=== PATIENT | female | born 1965 | race Caucasian/White ===

== ENCOUNTER 2023-08-27 09:29 | Outpatient (OUT) | payer OTHER, SELFPAY ==
--- NOTE | 2023-08-27 09:38 | MM_ITS ---
Patient Name: GABY FREDERICK MR#: [id number] : 1965 Exam Date: 08/27/2023 Ordering Doctor: Non-Staff Physician RADIOLOGY REPORT PROCEDURE: MM TOMOSYNTHESIS SCREENING BI COMPARISON: MG MAMM SCREEN 3D SISSY CAD, 06/19/2022. MG MAMM SCREEN 3D SISSY CAD, 06/13/2021. MG MAMM SCREEN SISSY W CAD, 05/12/2019. MG MAMM SCREEN SISSY W CAD, 11/11/2014. INDICATIONS: screening Calculator Name NCI Breast Cancer Risk Assessment Tool 5 Year Breast Cancer Risk 1.10% Lifetime Breast Cancer Risk 6.00% Personal Breast Cancer No Personal Ovarian Cancer No Treatments None Family Cancers Aunt-maternal with breast cancer at age 50; Aunt-paternal with breast cancer at age ~55; Mother with colon cancer at age 67. LOCATION: [facility] BREAST COMPOSITION: Extremely dense, which lowers the sensitivity of mammography. FINDINGS: DIAGNOSTIC CATEGORY 1--NEGATIVE. RIGHT BREAST: No significant suspicious finding. No significant change has occurred. LEFT BREAST: No significant suspicious finding. No significant change has occurred. RECOMMENDATIONS: ROUTINE MAMMOGRAM AND CLINICAL EVALUATION IN 12 MONTHS. PLEASE NOTE: A NORMAL MAMMOGRAM DOES NOT EXCLUDE THE POSSIBILITY OF BREAST CANCER. A CLINICALLY SUSPICIOUS PALPABLE LUMP SHOULD BE BIOPSIED. Dictated by: Branden Munoz M.D. on 08/29/2023 at 15:41 Approved by: Branden Munoz M.D. on 08/29/2023 at 15:42
== END 2023-08-27 09:30 | disposition home or self-care (01) ==
LOC: MAMMO 09:32
DX: Z12.31 Encounter for screening mammogram for malignant neoplasm of breast (principal); Z80.3 Family history of malignant neoplasm of breast; Z80.0 Family history of malignant neoplasm of digestive organs
CPT/HCPCS: 77063; 77067

== ENCOUNTER 2024-09-17 07:57 | Outpatient (OUT) | payer OTHER, SELFPAY ==
--- NOTE | 2024-09-17 07:58 | MM_ITS ---
Patient Name: GABY FREDERICK MR#: [id number] : 1965 Exam Date: 09/17/2024 Ordering Doctor: NON-STAFF PHYSICIAN RADIOLOGY REPORT PROCEDURE: MM TOMOSYNTHESIS SCREENING BI COMPARISON: MM TOMOSYNTHESIS SCREENING BI, 08/27/2023. MG MAMM SCREEN 3D SISSY CAD, 06/19/2022. MG MAMM SCREEN 3D SSISY CAD, 06/13/2021. MG MAMM SCREEN SISSY W CAD, 11/11/2014. INDICATIONS: Screening Calculator Name NCI Breast Cancer Risk Assessment Tool 5 Year Breast Cancer Risk 1.10% Lifetime Breast Cancer Risk 5.80% Personal Breast Cancer No Personal Ovarian Cancer No Treatments None Family Cancers Aunt-maternal with breast cancer at age 50; Aunt-paternal with breast cancer at age ~55; Mother with colon cancer at age 67. LOCATION: [facility] BREAST COMPOSITION: The breasts are heterogeneously dense,which may obscure small masses. FINDINGS: DIAGNOSTIC CATEGORY 1--NEGATIVE. LEFT BREAST: No significant suspicious finding. RIGHT BREAST: No significant suspicious finding. RECOMMENDATIONS: ROUTINE MAMMOGRAM AND CLINICAL EVALUATION IN 12 MONTHS. PLEASE NOTE: A NORMAL MAMMOGRAM DOES NOT EXCLUDE THE POSSIBILITY OF BREAST CANCER. A CLINICALLY SUSPICIOUS PALPABLE LUMP SHOULD BE BIOPSIED. Dictated by: Dayton Thurman DO on 09/18/2024 at 09:46 Approved by: Dayton Thurman DO on 09/18/2024 at 09:47
--- OUTSIDE RECORDS SUMMARY | 2024-09-17 08:00 | XMS_ITS | CCD ---
Author Organization [facility] Care Team Providers Care Payroll Associate Name Role Phone Yves Miramontes Unavailable Mast, Rip Unavailable JOANNE SORIA Primary Care Unavailable ELISEO CHEEK Attending Unavailable ELISEO CHEEK Admitting Unavailable WESTDR YVES V Consulting Unavailable ELISEO CHEEK Consulting Unavailable Mast, Rip Primary Care Unavailable Mast, Rip Attending Unavailable Mast, Rip Admitting Unavailable Mast, DO Rip Primary Care Provider Mast, DO Rip Attending Provider [phone] Allergies Allergy Classification Reported Allergen(s) Allergy Type Date of Onset Reaction(s) Facility (6 sources) Bee/Wasp/Ant venom Propensity to adverse reactions anaphylaxis [facility] Other (6 sources) [facility] Propensity to adverse reactions Unknown [facility] Other (1 source) ALLERGIES NOT ON FILE; Translations: [ALLERGIES NOT ON FILE] Propensity to adverse reactions (disorder) [facility] Repository Medications Current Medications Medication Drug Class(es) Dates Sig (Normalized) Sig (Original) Calcium Carbonate (6 sources) Tums Active lisinopril 10 mg oral tablet (1 source) Angiotensin Converting Enzyme Inhibitor Start: 08-26-2024 take 1 tablet by mouth once daily Lisinopril 10 mg tablet Active 10 MG PO Daily August 26, 2024 12:00am Multi For Her (6 sources) take 1 tablet by mouth once daily Multi For Her 1 Tablet Orally Daily Active 24 hr venlafaxine 75 mg extended release oral capsule (11 sources) Serotonin and Norepinephrine Reuptake Inhibitor Start: 08-21-2024 Venlafaxine 75 mg capsule,extended release 24hr Active 0 .ROUTE .COMPLEX 90 February 13th, 2025 8:27am TAKE 1 CAPSULE ONCE DAILY WITH FOOD Start: 06-09-2024 End: 08-21-2024 Venlafaxine 75 mg capsule,ex tended release 24hr Discontinued 0 .ROUTE .COMPLEX 90 June 09, 2024 9:04am August 21, 2024 8:27am TAKE 1 CAPSULE ONCE DAILY WITH FOOD Start: 08-29-2021 End: 06-09-2024 take 1 capsule by mouth once daily Venlafaxine 75 mg capsule,extended release 24hr Discontinued 75 MG PO Daily August 29, 2021 12:00am June 09, 2024 9:04am Completed/Discontinued Medications Medication Drug Class(es) Dates Sig (Normalized) Sig (Original) pantoprazole 40 mg delayed release oral tablet (9 sources) Proton Pump Inhibitor Start: 06-28-2021 End: 08-26-2024 take 1 tablet by mouth once daily Pantoprazole 40 mg tablet,delayed release (DR/EC) Discontinued 40 MG PO Daily August 29, 2021 12:00am August 26, 2024 1:29pm Triamcinolone (4 sources) Corticosteroid Start: 05-10-2015 KENALOG - 10 mg May, 60 mg Problems Active Problems Problem Classification Problem Date Documented Da te Episodic/Chronic Disorders of lipid metabolism (4 sources) Hyperlipidemia; Translations: [Hyperlipidemia, unspecified] Chronic Esophageal disorders (11 sources) Gastroesophageal reflux disease; Translations: [Gastro-esophageal reflux disease without esophagitis] Onset: 1 Resolved: 2 Chronic Immunizations and screening for infectious disease (4 sources) Encounter for screening for respiratory tuberculosis; Translations: [Encounter for immunization] Onset: 5 Episodic Mood disorders (6 sources) Major depression, single episode; Translations: [Major depressive disorder, single episode, unspecified] Chronic Other gastrointestinal disorders (9 sources) Celiac disease; Translations: [Celiac disease] 08-29-2021 Chronic Other gastrointestinal disorders (2 sources) Celiac disease Onset: 1 Resolved: 2 Chronic Other lower respiratory disease (1 source) Other forms of dyspnea Episodic Other screening for suspected conditions (not mental disorders or infectious disease) (6 sources) Encounter for screening for cardiovascular disorders; Translations: [Encounter for screening mammogram for malignant neoplasm of breast] Onset: 2 Resolved: 2 Episodic Residual codes; unclassified (6 sources) Insomnia; Translations: [Insomnia, unspecified] Episodic Residual codes; unclassified (3 sources) Family history of malignant neoplasm of digestive organs; Translations: [FAM HX MALIG NEOPLASM DIGESTIV ORGN] Onset: 1 Resolved: 2 Episodic Residual codes; unclassified (6 sources) Family history of cancer of colon; Translations: [Family history of malignant neoplasm of digestive organs] 08-29-2021 Episodic Residual codes; unclassified (1 source) Family history of malignant neoplasm of breast; Translations: [FAMILY HX MALIG NEOPLASM OF BREAST] Onset: 2 Episodic Unclassified (1 source) Encounter for screening for cardiovascular disorders; Translations: [Encounter for screening for cardiovascular disorders] Onset: 3 Past or Other Problems Problem Classification Problem Date Documented Da te Episodic/Chronic Residual codes; unclassified (3 sources) Family history of malignant neoplasm of gastrointestinal tract; Translations: [Family history of malignant neoplasm of digestive organs] Episodic Results Test Name Value Interpretation Reference Range Facility HEPATITIS B SURFACE ANTIBODY QUANTon 07-30-2024 HEPATITIS B VIRUS SURFACE AB (MIU/ML) IN SERUM 93.45 mIU/mL Normal [facility] Comment on above: Result Comment: INTE RPRETATION: NONREACTIVE <8.00 mIU/mL INDETERMINATE 8.00 - 12.00 mIU/mL REACTIVE >12 mIU/mL Performed By: #### L [id number] #### [facility] [address] [place] [address] Alanine aminotransferase [En zymatic activity/volume] in Serum or PlasmaOrdered By: Rip Mohr on 11-06-2022 ALT [Catalytic activity/Vol] 21 U/L 7-52 [facility] Albumin [Mass/volume] in Ser um or Plasma by Bromocresol green (BCG) dye binding methoOrdered By: Rip Mohr on 11-06-2022 Albumin BCG dye [Mass/Vol] 4.3 g/dL 3.5-5.7 [facility] Alkaline phosphatase [Enzyma tic activity/volume] in Serum or PlasmaOrdered By: Rip Mohr on 11-06-2022 ALP [Catalytic activity/Vol] 48 U/L 34-104 [facility] Aspartate aminotransferase [ Enzymatic activity/volume] in Serum or PlasmaOrdered By: Rip Mast on 11-06-2022 AST [Catalytic activity/Vol] 26 U/L 13-39 [facility] Bilirubin.total [Mass/volume ] in Serum or PlasmaOrdered By: Rip Mast on 11-06-2022 Bilirubin [Mass/Vol] 0.4 mg/dL 0.3-1.0 [facility] Calcium [Mass/volume] in Ser um or PlasmaOrdered By: Rip Mast on 11-06-2022 Calcium [Mass/Vol] 8.7 mg/dL 8.6-10.3 [facility] Carbon dioxide, total [Moles /volume] in Serum or PlasmaOrdered By: Rip Mast on 11-06-2022 CO2 [Moles/Vol] 26.8 mmol/L 21.0-31.0 [facility] Chloride [Moles/volume] in [place] or PlasmaOrdered By: Rip Mast on 11-06-2022 Chloride [Moles/Vol] 106 mmol/L 98-107 [facility] Cholesterol [Mass/volume] in Serum or PlasmaOrdered By: Rip Mast on 11-06-2022 Cholesterol [Mass/Vol] 246 mg/dL 140-200 [facility] Comment on above: Chol less than 200 m g/dl low riskChol 201-239 mg/dl borderline riskChol 240 mg/dl and greater high risk Cholesterol in LDL Calc [Mas s/Vol]Ordered By: Rip Mast on 11-06-2022 Cholesterol in LDL [Mass/Vol] 146 mg/dL 0-100 [facility] Comment on above: LDL ATP III CLASSIFI CATIONLDL less than 100 mg/dL OptimalLDL 100-129 mg/dL Near or above optimalLDL 130-159 mg/dL Borderline highLDL 160-189 mg/dL HighLDL greater than 189 mg/dL Very high Cholesterol in VLDL Calc [Ma ss/Vol]Ordered By: Rip Mast on 11-06-2022 Cholesterol in VLDL [Mass/Vol] 42 mg/dL [facility] Comprehensive Metabolic [place] 11-06-2022 Albumin [Mass/Vol] 4.3 g/dL Normal 3.5-5.7 [facility] Comment on above: Order Comment: PT FA STED 12 HOURS Reason for Exam Screening for cardiovascular condition Performed By: #### C MP, LIPID #### [facility] [address] Albumin/Globulin [Mass ratio] 1.5 {ratio} Normal [facility] Comment on above: Order Comment: PT FA STED 12 HOURS Reason for Exam Screening for cardiovascular condition Performed By: #### C MP, LIPID #### [facility] [address] ALP [Catalytic activity/Vol] 48 U/L Normal 34-104 [facility] Comment on above: Order Comment: PT FA STED 12 HOURS Reason for Exam Screening for cardiovascular condition Performed By: #### C MP, LIPID #### [facility] [address] [place] [address] ALT [Catalytic activity/Vol] 21 U/L Normal 7-52 [facility] Comment on above: Order Comment: PT FA STED 12 HOURS Reason for Exam Screening for cardiovascular condition Performed By: #### C MP, LIPID #### [facility] [address] Anion gap [Moles/Vol] 10.7 mmol/L Normal 6.0-15.0 [facility] Comment on above: Order Comment: PT FA STED 12 HOURS Reason for Exam Screening for cardiovascular condition Performed By: #### C MP, LIPID #### [facility] [address] [place] [address] [place] AST [Catalytic activity/Vol] 26 U/L Normal 13-39 [facility] Comment on above: Order Comment: PT FA STED 12 HOURS Reason for Exam Screening for cardiovascular condition Performed By: #### C MP, LIPID #### [facility] [address] [place] [address] [place] Bilirubin [Mass/Vol] 0.4 mg/dL Normal 0.3-1.0 [facility] Comment on above: Order Comment: PT FA STED 12 HOURS Reason for Exam Screening for cardiovascular condition Performed By: #### C MP, LIPID #### [facility] [address] Calcium [Mass/Vol] 8.7 mg/dL Normal 8.6-10.3 [facility] Comment on above: Order Comment: PT FA STED 12 HOURS Reason for Exam Screening for cardiovascular condition Performed By: #### C MP, LIPID #### [facility] [address] Chloride [Moles/Vol] 106 mmol/L Normal 98-107 [facility] Comment on above: Order Comment: PT FA STED 12 HOURS Reason for Exam Screening for cardiovascular condition Performed By: #### C MP, LIPID #### [facility] [address] CO2 [Moles/Vol] 26.8 mmol/L Normal 21.0-31.0 [facility] Comment on above: Order Comment: PT FA STED 12 HOURS Reason for Exam Screening for cardiovascular condition Performed By: #### C MP, LIPID #### [facility] [address] Creatinine [Mass/Vol] 0.87 mg/dL Normal 0.60-1.20 [facility] Comment on above: Order Comment: PT FA STED 12 HOURS Reason for Exam Screening for cardiovascular condition Performed By: #### C MP, LIPID #### [facility] [address] [place] [address] [place] GFR/1.73 sq M.predicted MDRD (S/P/Bld) [Vol rate/Area] mL/min/{1.73_m2} [facility] Comment on above: Order Comment: PT FA STED 12 HOURS Reason for Exam Screening for cardiovascular condition Performed By: #### C MP, LIPID #### [facility] [address] [place] [address] [place] Globulin (S) [Mass/Vol] 2.9 g/dL Normal [facility] Comment on above: Order Comment: PT FA STED 12 HOURS Reason for Exam Screening for cardiovascular condition Performed By: #### C MP, LIPID #### [facility] [address] [place] [address] [place] Glucose [Mass/Vol] 101 mg/dL High 70-100 [facility] Comment on above: Order Comment: PT FA STED 12 HOURS Reason for Exam Screening for cardiovascular condition Result Comment: [place] om Glucose Reference Range is dependent on time and content of last meal. Glucose of more than 200 mg/dL in a nonstressed, ambulatory subject supports the diagnosis of Diabetes Mellitus. ADA recommended reference range Performed By: #### C MP, LIPID #### [facility] [address] [place] [address] [place] Potassium [Moles/Vol] 4.5 mmol/L Normal 3.5-5.1 [facility] Comment on above: Order Comment: PT FA STED 12 HOURS Reason for Exam Screening for cardiovascular condition Performed By: #### C MP, LIPID #### [facility] [address] Protein [Mass/Vol] 7.2 g/dL Normal 6.4-8.9 [facility] Comment on above: Order Comment: PT FA STED 12 HOURS Reason for Exam Screening for cardiovascular condition Performed By: #### C MP, LIPID #### [facility] [address] [place] [id number] [place] Sodium [Moles/Vol] 139 mmol/L Normal 136-145 [facility] Comment on above: Order Comment: PT FA STED 12 HOURS Reason for Exam Screening for cardiovascular condition Performed By: #### C MP, LIPID #### [facility] [address] [place] [id number] [place] Urea nitrogen [Mass/Vol] 22 mg/dL Normal 7-25 [facility] Comment on above: Order Comment: PT FA STED 12 HOURS Reason for Exam Screening for cardiovascular condition Performed By: #### C MP, LIPID #### [facility] [address] [place] [id number] [place] Creatinine [Mass/volume] in Serum or PlasmaOrdered By: Rip Mohr on 11-06-2022 Creatinine [Mass/Vol] 0.87 mg/dL 0.60-1.20 [facility] Globulin Calc (S) [Mass/Vol] Ordered By: Rip Mohr on 11-06-2022 Globulin (S) [Mass/Vol] 2.9 g/dL [facility] Glucose [Mass/volume] in Ser um or PlasmaOrdered By: Rip Mohr on 11-06-2022 Glucose [Mass/Vol] 101 mg/dL 70-100 [facility] Comment on above: ADA recommended refe rence rangeRandom Glucose Reference Range is dependent on time and content of last meal. Glucose of more than 200 mg/dL in a nonstressed, ambulatory subject supports the diagnosis of Diabetes Mellitus. Lipid Panelon 11-06-2022 Cholesterol [Mass/Vol] 246 mg/dL High 140-200 [facility] Comment on above: Order Comment: PT FA STED 12 HOURS Reason for Exam Screening for cardiovascular condition Result Comment: Chol less than 200 mg/dl low risk Chol 201-239 mg/dl borderline risk Chol 240 mg/dl and greater high risk Performed By: #### C MP, LIPID #### [facility] [address] Cholesterol in HDL [Mass/Vol] 57 mg/dL Normal 35-85 [facility] Comment on above: Order Comment: PT FA STED 12 HOURS Reason for Exam Screening for cardiovascular condition Result Comment: HDL CHOL ATP-III CLASSIFICATION Cardiovascular Risk HDL > or equal to 60 mg/dL LOW HDL < 40 mg/dL HIGH Performed By: #### C MP, LIPID #### [facility] [address] Cholesterol.total/Choles terol in HDL [Mass ratio] 4.3 {ratio} Normal <5.0 [facility] Comment on above: Order Comment: PT FA STED 12 HOURS Reason for Exam Screening for cardiovascular condition Result Comment: PERF ORMED BY: [facility] [address] [place] [address] PATHOLOGIST MELTER CLERK TABATHA JERRY M.D. Performed By: #### C MP, LIPID #### [facility] [address] [place] [address] [place] LDL Cholesterol,Calculated 146 mg/dL High 0-100 [facility] Comment on above: Order Comment: PT FA STED 12 HOURS Reason for Exam Screening for cardiovascular condition Result Comment: LDL ATP III CLASSIFICATION LDL less than 100 mg/dL Optimal LDL 100-129 mg/dL Near or above optimal LDL 130-159 mg/dL Borderline high LDL 160-189 mg/dL High LDL greater than 189 mg/dL Very high Performed By: #### C MP, LIPID #### [facility] [address] Triglyceride w/Reflex 214 mg/dL High 0-149 [facility] Comment on above: Order Comment: PT FA STED 12 HOURS Reason for Exam Screening for cardiovascular condition Result Comment: TRIG ATP III CLASSIFICATION TRIG less than 150 mg/dL Normal TRIG 150-199 mg/dL Borderline high TRIG 200-500 mg/dL High TRIG greater than 500 mg/dL Very high Standard traceable to the Center for Disease Conrtrol and Prevention (CDC) test method. Performed By: #### C MP, LIPID #### [facility] [address] VLDL CHOLESTEROL 42 mg/dL Normal [facility] Comment on above: Order Comment: PT FA STED 12 HOURS Reason for Exam Screening for cardiovascular condition Performed By: #### C MP, LIPID #### [facility] [address] No Panel InformationOrdered By: Rip Mohr on 11-06-2022 Estimated GFR (CKD-EPI) > 60.0 mL/Min [facility] Creatinine Clearance (Chem N/A [facility] Potassium [Moles/volume] in Serum or PlasmaOrdered By: Rip Mohr on 11-06-2022 Potassium [Moles/Vol] 4.5 mmol/L 3.5-5.1 [facility] Protein [Mass/volume] in Ser um or PlasmaOrdered By: Rip Mohr on 11-06-2022 Protein [Mass/Vol] 7.2 g/dL 6.4-8.9 [facility] Serum or plasma albumin/glob ulin mass ratioOrdered By: Rip Mohr on 11-06-2022 Albumin/Globulin [Mass ratio] 1.5 {ratio} [facility] Serum or plasma anion gap de terminationOrdered By: Rip Mohr on 11-06-2022 Anion gap [Moles/Vol] 10.7 mmol/L 6.0-15.0 [facility] Serum or plasma high density lipoprotein (HDL) cholesterol measurementOrdered By: [facility] on 11-06-2022 Cholesterol in HDL [Mass/Vol] 57 mg/dL 35-85 [facility] Comment on above: HDL CHOL ATP-III CLA SSIFICATION Cardiovascular RiskHDL > or equal to 60 mg/dL LOWHDL < 40 mg/dL HIGH Serum or plasma total choles terol/high density lipoprotein (HDL) cholesterol mass ratOrdered By: [facility] on 11-06-2022 Cholesterol.total/Choles terol in HDL [Mass ratio] 4.3 {ratio} <5.0 [facility] Sodium [Moles/volume] in Ser um or PlasmaOrdered By: [facility] on 11-06-2022 Sodium [Moles/Vol] 139 mmol/L 136-145 [facility] Triglyceride [Mass/volume] i n Serum or PlasmaOrdered By: [facility] on 11-06-2022 Triglyceride [Mass/Vol] 214 mg/dL 0-149 [facility] Comment on above: TRIG ATP III CLASSIF ICATIONTRIG less than 150 mg/dL NormalTRIG 150-199 mg/dL Borderline highTRIG 200-500 mg/dL High TRIG greater than 500 mg/dL Very highStandard traceable to the Center for Disease Conrtrol and Prevention (CDC) test method. Urea nitrogen [Mass/volume] in Serum or PlasmaOrdered By: [facility] on 11-06-2022 Urea nitrogen [Mass/Vol] 22 mg/dL -25 [facility] MG MAMM SCREEN 3D SISSY CADon 06-19-2022 MG MAMM SCREEN 3D SISSY CAD Patient: KELELE PELAEZ Exam Date: 06/19/2022 : 1965 Gender:F Ordering : DR. ELISEO CHEEK D.O. Admission #: [id number] Family : Order #: [id number] CLICK HERE TO VIEW EXAM RADIOLOGY REPORT PROCEDURE: MAMMOGRAM SCREENING 3D BILATERAL CAD COMPARISON: MG MAMM SCREEN 3D SISSY CAD, 06/13/2021. MG MAMM SCREEN SISSY W CAD, 05/12/2019. INDICATIONS: Screening mammography Calculator Name NCI Breast Cancer Risk Assessment Tool 5 Year Breast Cancer Risk 1.10% Lifetime Breast Cancer Risk 6.10% Personal Breast Cancer No Personal Ovarian Cancer No Treatments None Family Cancers Aunt-maternal with breast cancer at age 50; Aunt-paternal with breast cancer at age 55; Mother with colon cancer at age 67. LOCATION: [facility] BREAST COMPOSITION: Extremely dense, which lowers the sensitivity of mammography. FINDINGS: DIAGNOSTIC CATEGORY 1--NEGATIVE. NO CHANGE FROM COMPARISON ASSESSMENT. Scattered benign-appearing lymph nodes are present. RIGHT BREAST: No significant suspicious finding. LEFT BREAST: No significant suspicious finding. RECOMMENDATIONS: ROUTINE MAMMOGRAM AND CLINICAL EVALUATION IN 12 MONTHS. PLEASE NOTE: A NORMAL MAMMOGRAM DOES NOT EXCLUDE THE POSSIBILITY OF BREAST CANCER. A CLINICALLY SUSPICIOUS PALPABLE LUMP SHOULD BE BIOPSIED. Dictated by: Yves Conley MD on 06/20/2022 at 10:54 Approved by: Yves Conley MD on 06/20/2022 at 10:55 Normal [facility] Hep Bs Abon 09-23-2019 HBV surface Ab Ql (S) Reactive Fis [facility] Comment on above: Result Comment: Non Reactive: Inconsistent with immunity, less than 10 mIU/mL Reactive: Consistent with immunity, greater than 9.9 mIU/mL Performed at: [facility] [address] [id number] PhD [place] Performed By: #### 2 [id number] #### [facility] [address] [place] [address] Varic IgGon 09-23-2019 VZV IgG IA Qn (S) 1969 Immune >165 [facility] Comment on above: Result Comment: Nega tive <135 Equivocal 135 - 165 Positive >165 A positive result generally indicates exposure to the pathogen or administration of specific immunoglobulins, but it is not indication of active infection or stage of disease. Performed at: [facility] [address] [id number] PhD [place] Performed By: #### [id number] #### [facility] [address] [place] [address] Vital Signs Date Time Vital Sign Value Performing Clinician Facility 08-26-2024 13:31-0500 Body height 162.56 cm [facility] 08-26-2024 13:31-0500 Body mass index (BMI) [Ratio] 25.9 kg/m2 [facility] 08-26-2024 13:31-0500 Body temperature 98.5 [degF] [facility] 08-26-2024 13:31-0500 Body weight 68.52 kg [facility] 08-26-2024 13:31-0500 Diastolic blood pressure 100 mm[Hg] [facility] 08-26-2024 13:31-0500 Heart rate 89 /min [facility] 08-26-2024 13:31-0500 SaO2% (BldA) [Mass fraction] 98 % [facility] 08-26-2024 13:31-0500 Systolic blood pressure 152 mm[Hg] [facility] 09-12-2022 13:00-0500 Body height 162.56 cm Rip Mast Other [email or web address] [facility] Other 09-12-2022 13:00-0500 Body mass index (BMI) [Ratio] 24.96 kg/m2 Rip Mast Other [facility] Other 09-12-2022 13:00-0500 Body temperature 98.5 [degF] Rip Mast Other [facility] Other 09-12-2022 13:00-0500 Body weight 65.95 kg Rip Mast Other [facility] Other 09-12-2022 13:00-0500 Diastolic blood pressure 78 mm[Hg] Rip Mast Other [facility] Other 09-12-2022 13:00-0500 Respiratory rate 16 /min Rip Mast Other [facility] Other 09-12-2022 13:00-0500 SaO2% (BldA) [Mass fraction] 96 % Rip Mast Other [facility] Other 09-12-2022 13:00-0500 Systolic blood pressure 112 mm[Hg] Rip Mast Other [facility] Other 06-28-2021 16:45-0500 Body height 162.56 cm Yves Miramontes Other [facility] Other 06-28-2021 16:45-0500 Body mass index (BMI) [Ratio] 24.89 kg/m2 Yves Miramontes Other [facility] Other 06-28-2021 16:45-0500 Body weight 65.77 kg Yves Miramontes Other [facility] Other Encounters Encounter Date Encounter Type Care Provider Facility Start: 08-26-2024 End: 08-26-2024 ambulatory [facility] Work Phone: Start: 08-26-2024 End: 08-26-2024 Patient encounter procedure [facility] Work Phone: Start: 07-30-2024 End: 07-30-2024 ambulatory [facility] Start: 07-30-2024 End: 07-30-2024 Encounter for antibody response examination [facility] Start: 08-09-2023 End: 08-09-2023 ambulatory Rip Mast Other [facility] Other Start: 08-09-2023 Telephone encounter Rip Mast [facility] Start: 11-06-2022 End: 11-06-2022 ambulatory Rip Mast Facility:[facility] Start: 11-06-2022 End: 11-06-2022 Patient encounter procedure DO Rip Mast Work Phone: [facility] Start: 09-12-2022 End: 09-12-2022 ambulatory Rip Mast Other [facility] Other Start: 09-12-2022 Encounter for genera l adult medical examination without abnormal findings Rip Mast [facility] Start: 09-12-2022 Periodic preventive med est patient 40-64yrs Rip Mast [facility] Start: 07-09-2022 End: 07-09-2022 ambulatory Rip Mast Other [facility] Other Start: 07-09-2022 Telephone encounter Rip Mast [facility] Start: 06-19-2022 End: 06-20-2022 ambulatory JOANNE SORIA Facility: Start: 09-26-2021 End: 09-26-2021 ambulatory Rip Mast Other [facility] Other Start: 09-26-2021 Telephone encounter Rip Mast [facility] Start: 08-05-2021 End: 08-05-2021 ambulatory Yves Miramontes Other [facility] Other Start: 08-05-2021 Telephone encounter Yves Miramontes [facility] Start: 06-28-2021 End: 06-28-2021 ambulatory Yves Miramontes Other [facility] Other Start: 06-28-2021 Office outpatient ne w 45 minutes Yves Miramontes [facility] Immunizations Immunization Date Immunization Notes Care Provider [place] 05-21-2022 influenza, seasonal, injectable Rip Mast Other [facility] 05-21-2022 COVID-19 Moderna (BIvalent) Rip Mast Other [facility] 06-18-2021 COVID-19 [id number] (Moderna) [facility] 05-09-2021 influenza, seasonal, injectable Rip Mast Other [facility] 12-27-2020 zoster vaccine recombinant Yves Miramontes Other [facility] 08-03-2020 COVID-19 [id number] (Moderna) [facility] 07-07-2020 COVID-19 Vaccine Mod marylou - Documentation Purposes Only Rip Mohr Other [facility] 07-06-2020 COVID-19 mRNA-[id number] (Moderna) [facility] 04-08-2020 influenza, seasonal, injectable Yves Miramontes Other [facility] Payers Date Payer Category Payer Self-pay [id number] 1965 Unknown [id number] 1960 Unknown [id number] Unknown MMO [id number] Unknown [id number] Social History Date Type Detail Facility Unknown if ever smoked [facility] Other Sex Assigned At Sex Assigned At Bir th [facility] Other Start: 1965 Sex Assigned At Female F [facility] Start: 08-29-2021 End: 08-26-2024 Tobacco smoking status NHIS Never smoked tobacco (finding) [facility] Start: 08-26-2024 Sex Female (finding) [facility] Evaluation note 09-12-2022 Note Date & Type Note Facility 09-12-2022 Evaluation note Encounter Date Diagnosis Assessment Notes Sep, Routine adult health maintenance (ICD-10 - Z00.00) Her exam is unremarkable. Routine screening labs are ordered, further treatment pending results. We discussed her exertional dyspnea, I am concerned for possible occult coronary disease. Check Cardiolite stress test, further treatment pending results Sep, Screening for cardiovascular condition (ICD-10 - Z13.6) Sep, Exertional dyspnea (ICD-10 - R06.09) [facility] Other Evaluation note 09-26-2021 Note Date & Type Note Facility 09-26-2021 Evaluation note Encounter Date Diagnosis Assessment Notes Sep, Screening for cardiovascular condition (ICD-10 - Z13.6) [facility] Other Evaluation note 08-05-2021 Note Date & Type Note Facility 08-05-2021 Evaluation note Encounter Date Diagnosis Assessment Notes Jul, GERD (gastroesoph ageal reflux disease) (ICD-10 - K21.9) Jul, Celiac disease (ICD-10 - K90.0) Jul, Family history of colon cancer (ICD-10 - Z80.0) [facility] Other Evaluation note Note Date & Type Note Facility Evaluation note [facility] Other Evaluation note Note Date & Type Note Facility Evaluation note No assessment information [facility] Work Phone: Evaluation note Note Date & Type Note Facility Evaluation note No Information [facility] Other History general Narrative - Reported Note Date & Type Note Facility History general Narrative - Reported [facility] Other History general Narrative - Reported Note Date & Type Note Facility History general Narrative - Reported Type Medical History Depression Medical History Eating disorder Medical History Generalized Anxiety Disorder Medical History Bulimia Nervosa Medical History Classic migraine Medical History Celiac Disease per Dr. Ferguson, 2 015 Medical History hearing loss Surgical History Hysterectomy: 1998 Surgical History 2008-colonoscopy, endoscopy Surgical History COLONOSCOPY, ENDOSCOPY- DR. LUIS FERNANDO KAYE Hospitalization History CHEST PAIN [facility] Other History general Narrative - Reported Note Date & Type Note Facility History general Narrative - Reported Type Medical History Depression Medical History Eating disorder Medical History Generalized Anxiety Disorder Medical History Bulimia Nervosa Medical History Classic migraine Medical History Celiac Disease per Dr. Ferguson, 2 015 Medical History hearing loss Surgical History Hysterectomy: 1998 Surgical History 2009-colonoscopy, endoscopy Surgical History COLONOSCOPY, ENDOSCOPY- DR. LUIS FERNANDO KAYE Surgical History Colonoscopy 2021 Hospitalization History CHEST PAIN [facility] Other Summary Purpose Family History Relationship Condition Age at Onset Recorded Date/T skylar Not Specified Malignant neoplasm of colon Unknown Diabetes mellitus Unknown Chronic obstructive pulmonary disease Unk nown Asthma Unknown father Myocardial infarction Unknown Relationship Condition Age at Onset Recorded Date/T skylar mother Malignant neoplasm of colon Unknown Diabetes mellitus Unknown Chronic obstructive pulmonary disease Unk nown Asthma Unknown father Myocardial infarction Unknown brother Unknown father Unknown Myocardial infarction Unknown Heart disease Unknown grandparent Unknown mother Malignant neoplasm Unknown Unknown Advance Directives Advance Directive Response Recorded Date/ Time Advance Directives No January 28 5:38pm Advance Directive Response Recorded Date/ Time Advance Directives No January 28 4:38pm Chief Complaint and Reason for Visit Chief Complaint Z13.6 Chief Complaint Admit Date Awv August 26, 2024 1:20pm Additional Source Comments INFORMATION SOURCE (unrecogn ized section and content) DATE CREATED [facility] DATE CREATED AUTHOR AUTHOR'S ORGANIZ ATION 06/30/2022 [facility] DATE CREATED AUTHOR AUTHOR'S ORGANIZ ATION 11/07/2022 [facility] DATE CREATED AUTHOR AUTHOR'S ORGANIZ ATION 08/01/2024 [facility] REASON FOR VISIT (unrecogniz ed section and content) COVID ORDERLab order request appt1 year Follow upRefill Goals (unrecognized section and content) Goals may be documented in a n alternate section Care Teams (unrecognized sec tion and content) Team Status: Active Member Role Status Dates Rip Mast , DO Primary Care Provider Active Team Status: Inactive Member Role Status Dates Rip Mast , DO Primary Care Provider Active Rip Mast , DO Attending Provider Active Team Status: Inactive Member Role Status Dates Rip Mast , DO Primary Care Provide r, Attending Provider Active Start: August 26, 2024 End: August 26, 2024 FOR RECORDS PERTAINING TO PATIENTS WHO ARE OR HAVE BEEN ENROLLED IN A CHEMICAL DEPENDENCY/SUBSTANCEABUSE PROGRAM, SOME INFORMATION MAY BE OMITTED. This clinical summary was aggregated from multiple sources. Caution should be exercised in using it in the provision of clinical care. This summary normalizes information from multiple sources, and as a consequence, information in this document may materially change the coding, format and clinical context of patient data. In addition, data may be omitted in some cases. CLINICAL DECISIONS SHOULD BE BASED ON THE PRIMARY CLINICAL RECORDS. [facility]. provides no warranty or guarantee of the accuracy or completeness of information in this document.
== END 2024-09-17 07:58 | disposition home or self-care (01) ==
LOC: MAMMO 07:57
DX: Z12.31 Encounter for screening mammogram for malignant neoplasm of breast (principal); Z80.3 Family history of malignant neoplasm of breast; Z80.0 Family history of malignant neoplasm of digestive organs
CPT/HCPCS: 77063; 77067

== ENCOUNTER 2024-10-17 08:04 | Outpatient (OUT) | payer OTHER, SELFPAY ==
--- OUTSIDE RECORDS SUMMARY | 2024-10-17 08:10 | XMS_ITS | CCD ---
Author Organization [facility] Care Team Providers Care Teacher Vocational Training Name Role Phone Yves Miramontes Unavailable Mast, Rip Unavailable JOANNE SORIA Primary Care Unavailable ELISEO CHEEK Attending Unavailable ELISEO CHEEK Admitting Unavailable WESTDR YVES V Consulting Unavailable ELISEO CHEEK Consulting Unavailable Mast, Rip Primary Care Unavailable Mast, Rip Attending Unavailable Mast, Rip Admitting Unavailable Mast, DO Rip Primary Care Provider Mast, DO Rip Attending Provider Allergies Allergy Classification Reported Allergen(s) Allergy Type Date of Onset Reaction(s) Facility (6 sources) Bee/Wasp/Ant venom Propensity to adverse reactions anaphylaxis [facility] Other (6 sources) W[place]UTS Propensity to adverse reactions Unknown [facility] Other (1 source) ALLERGIES NOT ON FILE; Translations: [ALLERGIES NOT ON FILE] Propensity to adverse reactions (disorder) [facility] Repository Medications Current Medications Medication Drug [...] AB (MIU/ML) IN SERUM 93.45 mIU/mL Normal [facility] Comment on above: Result Comment: INTE RPRETATION: NONREACTIVE <8.00 mIU/mL INDETERMINATE 8.00 - 12.00 mIU/mL REACTIVE >12 mIU/mL Performed By: #### L [id number] #### [facility] [address] [place] [address] Alanine aminotransferase [En zymatic activity/volume] in Serum or PlasmaOrdered By: Rip Mohr on 11-06-2022 ALT [Catalytic activity/Vol] 21 U/L 7-[address] [facility] Albumin [Mass/volume] in Ser um or Plasma by Bromocresol green (BCG) dye binding methoOrdered By: Rip Mohr on 11-06-2022 Albumin BCG dye [Mass/Vol] 4.3 g/dL 3.5-5.[address] [facility] Alkaline phosphatase [Enzyma tic activity/volume] in Serum or PlasmaOrdered By: Rip Mohr on 11-06-2022 ALP [Catalytic activity/Vol] 48 U/L 34-[address] [facility] Aspartate aminotransferase [ Enzymatic activity/volume] in Serum or PlasmaOrdered By: Rip Mast on 11-06-2022 AST [Catalytic activity/Vol] 26 U/L 13-[address] [facility] Bilirubin.total [Mass/volume ] in Serum or PlasmaOrdered By: Rip Mast on 11-06-2022 Bilirubin [Mass/Vol] 0.4 mg/dL 0.3-1.0 [facility] Calcium [Mass/volume] in Ser um or PlasmaOrdered By: Rip Mast on 11-06-2022 Calcium [Mass/Vol] 8.7 mg/dL 8.6-10.3 [facility] Carbon dioxide, total [Moles /volume] in Serum or PlasmaOrdered By: Rpi Mast on 11-06-2022 CO2 [Moles/Vol] 26.8 mmol/L 21.0-31.0 [facility] Chloride [Moles/volume] in [place] or PlasmaOrdered By: Rip Mast on 11-06-2022 Chloride [Moles/Vol] 106 mmol/L 98-107 [facility] Cholesterol [Mass/volume] in Serum or PlasmaOrdered By: Rip Mast on 11-06-2022 Cholesterol [Mass/Vol] 246 mg/dL 140-200 [facility] Comment on above: Chol less than 200 m g/dl low riskChol 201-239 mg/dl borderline riskChol 240 mg/dl and greater high risk Cholesterol in LDL Calc [Mas s/Vol]Ordered By: Rip Mast on 11-06-2022 Cholesterol in LDL [Mass/Vol] 146 mg/dL 0-[address] [facility] Comment on above: LDL ATP III CLASSIFI CATIONLDL less than 100 mg/dL OptimalLDL 100-129 mg/dL Near or above optimalLDL 130-159 mg/dL Borderline highLDL 160-189 mg/dL HighLDL greater than 189 mg/dL Very high Cholesterol in VLDL Calc [Ma ss/Vol]Ordered By: Rip Mast on 11-06-2022 Cholesterol in VLDL [Mass/Vol] 42 mg/dL [facility] Comprehensive Metabolic Pane [place] 11-06-2022 Albumin [Mass/Vol] 4.3 g/dL Normal 3.5-5.7 [facility] Comment on above: Order Comment: PT FA STED 12 HOURS Reason for Exam Screening for cardiovascular condition Performed By: #### C MP, LIPID #### [facility] [address] Albumin/Globulin [Mass ratio] 1.5 {ratio} Normal [facility] Comment on above: Order Comment: PT FA STED 12 HOURS Reason for Exam Screening for cardiovascular condition Performed By: #### C MP, LIPID #### [facility] [address] ALP [Catalytic activity/Vol] 48 U/L Normal 34-[address] [facility] Comment on above: Order Comment: PT FA STED 12 HOURS Reason for Exam Screening for cardiovascular condition Performed By: #### C MP, LIPID #### [facility] [address] [place] [address] ALT [Catalytic activity/Vol] 21 U/L Normal 7-[address] [facility] Comment on above: Order Comment: PT FA STED 12 HOURS Reason for Exam Screening for cardiovascular condition Performed By: #### C MP, LIPID #### [facility] [address] Anion gap [Moles/Vol] 10.7 mmol/L Normal 6.0-15.0 [facility] Comment on above: Order Comment: PT FA STED 12 HOURS Reason for Exam Screening for cardiovascular condition Performed By: #### C MP, LIPID #### [facility] [address] [place] [address] [place] AST [Catalytic activity/Vol] 26 U/L Normal 13-[address] [facility] Comment on above: Order Comment: PT FA STED 12 HOURS Reason for Exam Screening for cardiovascular condition Performed By: #### C MP, LIPID #### [facility] [address] [place] [address] [place] Bilirubin [Mass/Vol] 0.4 mg/dL Normal 0.3-1.0 [facility] Comment on above: Order Comment: PT FA STED 12 HOURS Reason for Exam Screening for cardiovascular condition Performed By: #### C MP, LIPID #### [facility] [address] Calcium [Mass/Vol] 8.7 mg/dL Normal 8.6-10.3 [facility] Comment on above: Order Comment: PT FA STED 12 HOURS Reason for Exam Screening for cardiovascular condition Performed By: #### C MP, LIPID #### [facility] [address] Chloride [Moles/Vol] 106 mmol/L Normal 98-107 [facility] Comment on above: Order Comment: PT FA STED 12 HOURS Reason for Exam Screening for cardiovascular condition Performed By: #### C MP, LIPID #### [facility] [address] CO2 [Moles/Vol] 26.8 mmol/L Normal 21.0-31.0 [facility] Comment on above: Order Comment: PT FA STED 12 HOURS Reason for Exam Screening for cardiovascular condition Performed By: #### C MP, LIPID #### [facility] [address] Creatinine [Mass/Vol] 0.87 mg/dL Normal 0.60-1.20 [facility] Comment on above: Order Comment: PT FA STED 12 HOURS Reason for Exam Screening for cardiovascular condition Performed By: #### C MP, LIPID #### [facility] [address] [place] [address] [place] GFR/1.73 sq M.predicted MDRD (S/P/Bld) [Vol rate/Area] mL/min/{1.73_m2} [facility] Comment on above: Order Comment: PT FA STED 12 HOURS Reason for Exam Screening for cardiovascular condition Performed By: #### C MP, LIPID #### [facility] [address] [place] [address] [place] Globulin (S) [Mass/Vol] 2.9 g/dL [facility] Comment on above: Order Comment: PT FA STED 12 HOURS Reason for Exam Screening for cardiovascular condition Performed By: #### C MP, LIPID #### [facility] [address] [place] [address] [place] Glucose [Mass/Vol] 101 mg/dL High 70-100 [facility] Comment on above: Order Comment: PT FA STED 12 HOURS Reason for Exam Screening for cardiovascular condition Result Comment: [place] om Glucose Reference Range is dependent on time and content of last meal. Glucose of more than 200 mg/dL in a nonstressed, ambulatory subject supports the diagnosis of Diabetes Mellitus. ADA recommended reference range Performed By: #### C MP, LIPID #### [facility] [address] [place] [address] [place] Potassium [Moles/Vol] 4.5 mmol/L Normal 3.5-5.1 [facility] Comment on above: Order Comment: PT FA STED 12 HOURS Reason for Exam Screening for cardiovascular condition Performed By: #### C MP, LIPID #### [facility] [address] Protein [Mass/Vol] 7.2 g/dL Normal 6.4-8.9 [facility] Comment on above: Order Comment: PT FA STED 12 HOURS Reason for Exam Screening for cardiovascular condition Performed By: #### C MP, LIPID #### [facility] [address] [place] [id number] [place] Sodium [Moles/Vol] 139 mmol/L Normal 136-145 [facility] Comment on above: Order Comment: PT FA STED 12 HOURS Reason for Exam Screening for cardiovascular condition Performed By: #### C MP, LIPID #### [facility] [address] [place] [id number] [place] Urea nitrogen [Mass/Vol] 22 mg/dL Normal 7-[address] [facility] Comment on above: Order Comment: PT FA STED 12 HOURS Reason for Exam Screening for cardiovascular condition Performed By: #### C MP, LIPID #### [facility] [address] [place] [id number] [place] Creatinine [Mass/volume] in Serum or PlasmaOrdered By: Rip Mohr on 11-06-2022 Creatinine [Mass/Vol] 0.87 mg/dL 0.60-1.20 [facility] Globulin Calc (S) [Mass/Vol] Ordered By: Rip Mohr on 11-06-2022 Globulin (S) [Mass/Vol] 2.9 g/dL [facility] Glucose [Mass/volume] in Ser um or PlasmaOrdered By: Rip Mohr on 11-06-2022 Glucose [Mass/Vol] 101 mg/dL 70-100 [facility] Comment on above: ADA recommended refe rence rangeRandom Glucose Reference Range is dependent on time and content of last meal. Glucose of more than 200 mg/dL in a nonstressed, ambulatory subject supports the diagnosis of Diabetes Mellitus. Lipid Panelon 11-06-2022 Cholesterol [Mass/Vol] 246 mg/dL High 140-200 [facility] Comment on above: Order Comment: PT FA STED 12 HOURS Reason for Exam Screening for cardiovascular condition Result Comment: Chol less than 200 mg/dl low risk Chol 201-239 mg/dl borderline risk Chol 240 mg/dl and greater high risk Performed By: #### C MP, LIPID #### [facility] [address] Cholesterol in HDL [Mass/Vol] 57 mg/dL Normal 35-[address] [facility] Comment on above: Order Comment: PT FA STED 12 HOURS Reason for Exam Screening for cardiovascular condition Result Comment: HDL CHOL ATP-III CLASSIFICATION Cardiovascular Risk HDL > or equal to 60 mg/dL LOW HDL < 40 mg/dL HIGH Performed By: #### C MP, LIPID #### [facility] [address] Cholesterol.total/Choles terol in HDL [Mass ratio] 4.3 {ratio} Normal <5.[address] [facility] Comment on above: Order Comment: PT FA STED 12 HOURS Reason for Exam Screening for cardiovascular condition Result Comment: PERF ORMED BY: [facility] [address] [place] [address] PATHOLOGIST [employer] OPERATOR TABATHA JERRY M.D. Performed By: #### C MP, LIPID #### [facility] [address] [place] [address] [place] LDL Cholesterol,Calculated 146 mg/dL High 0-[address] [facility] Comment on above: Order Comment: PT FA STED 12 HOURS Reason for Exam Screening for cardiovascular condition Result Comment: LDL ATP III CLASSIFICATION LDL less than 100 mg/dL Optimal LDL 100-129 mg/dL Near or above optimal LDL 130-159 mg/dL Borderline high LDL 160-189 mg/dL High LDL greater than 189 mg/dL Very high Performed By: #### C MP, LIPID #### [facility] [address] Triglyceride w/Reflex 214 mg/dL High 0-149 [facility] Comment on above: Order Comment: PT FA [...] Performed By: #### C MP, LIPID #### [facility] [address] VLDL CHOLESTEROL 42 mg/dL Normal [facility] Comment on above: Order Comment: PT FA STED 12 HOURS Reason for Exam Screening for cardiovascular condition Performed By: #### C MP, LIPID #### [facility] [address] No Panel InformationOrdered By: Rip Mohr on 11-06-2022 Estimated GFR (CKD-EPI) > 60.0 mL/Min [facility] Creatinine Clearance (Chem N/A [facility] Potassium [Moles/volume] in Serum or PlasmaOrdered By: Rip Mohr on 11-06-2022 Potassium [Moles/Vol] 4.5 mmol/L 3.5-5.1 [facility] Protein [Mass/volume] in Ser um or PlasmaOrdered By: Rip Mohr on 11-06-2022 Protein [Mass/Vol] 7.2 g/dL 6.4-8.9 [facility] Serum or plasma albumin/glob ulin mass ratioOrdered By: Rip Mohr on 11-06-2022 Albumin/Globulin [Mass ratio] 1.5 {ratio} [facility] Serum or plasma anion gap de terminationOrdered By: Rip Mohr on 11-06-2022 Anion gap [Moles/Vol] 10.7 mmol/L 6.0-15.0 [facility] Serum or plasma high density lipoprotein (HDL) cholesterol measurementOrdered By: [facility] on 11-06-2022 Cholesterol in HDL [Mass/Vol] 57 mg/dL 35-[address] [facility] Comment on above: HDL CHOL ATP-III CLA SSIFICATION Cardiovascular RiskHDL > or equal to 60 mg/dL LOWHDL < 40 mg/dL HIGH Serum or plasma total choles terol/high density lipoprotein (HDL) cholesterol mass ratOrdered By: [facility] on 11-06-2022 Cholesterol.total/Choles terol in HDL [Mass ratio] 4.3 {ratio} <5.[address] [facility] Sodium [Moles/volume] in Ser um or PlasmaOrdered By: [facility] on 11-06-2022 Sodium [Moles/Vol] 139 mmol/L 136-145 [facility] Triglyceride [Mass/volume] i n Serum or PlasmaOrdered By: [facility] on 11-06-2022 Triglyceride [Mass/Vol] 214 mg/dL 0-149 [facility] Comment on above: TRIG ATP III CLASSIF ICATIONTRIG less than 150 mg/dL NormalTRIG 150-199 mg/dL Borderline highTRIG 200-500 mg/dL High TRIG greater than 500 mg/dL Very highStandard traceable to the Center for Disease Conrtrol and Prevention (CDC) test method. Urea nitrogen [Mass/volume] in Serum or PlasmaOrdered By: [facility] on 11-06-2022 Urea nitrogen [Mass/Vol] 22 mg/dL -[address] [facility] MG MAMM SCREEN 3D SISSY CADon 06-19-2022 MG MAMM SCREEN 3D SISSY CAD Patient: KELLEE PELAEZ Exam Date: 06/19/2022 : 1965 Gender:F Ordering : DR. ELISEO CHEEK D.O. Admission #: [id number] Family : Order #: [id number] CLICK HERE TO VIEW EXAM RADIOLOGY REPORT [...] colon cancer at age 66. LOCATION: [facility] BREAST COMPOSITION: Extremely dense, which lowers [...] MD on 06/20/2022 at 10:55 Normal [facility] Hep Bs Abon 09-23-2019 HBV surface Ab Ql (S) Reactive Fis [facility] Comment on above: Result Comment: Non Reactive: Inconsistent with immunity, less than 10 mIU/mL Reactive: Consistent with immunity, greater than 9.9 mIU/mL Performed at: [facility] [address] [id number] PhD [place] Performed By: #### 2 [id number], [id number] #### [facility] [address] [place] [address] Varic IgGon 09-23-2019 VZV IgG IA Qn (S) 1969 Immune >165 [facility] Comment on above: Result Comment: Nega tive <135 Equivocal 135 - 165 Positive >165 A positive result generally indicates exposure to the pathogen or administration of specific immunoglobulins, but it is not indication of active infection or stage of disease. Performed at: [facility] [address] [id number] PhD [place] Performed By: #### 2 [id number], [id number] #### [facility] [address] [place] [address] Vital Signs Date Time Vital Sign Value Performing Clinician Facility 08-26-2024 13:31-0500 Body height 162.56 cm [facility] 08-26-2024 13:31-0500 Body mass index (BMI) [Ratio] 25.9 kg/m2 [facility] 08-26-2024 13:31-0500 Body temperature 98.5 [degF] [facility] 08-26-2024 13:31-0500 Body weight 68.52 kg [facility] 08-26-2024 13:31-0500 Diastolic blood pressure 100 mm[Hg] [facility] 08-26-2024 13:31-0500 Heart rate 89 /min [facility] 08-26-2024 13:31-0500 SaO2% (BldA) [Mass fraction] 98 % [facility] 08-26-2024 13:31-0500 Systolic blood pressure 152 mm[Hg] [facility] 09-12-2022 13:00-0500 Body height 162.56 cm Rip Mast Other [facility] Other 09-12-2022 13:00-0500 Body mass index (BMI) [Ratio] 24.96 kg/m2 Rip Mast Other [facility] Other 09-12-2022 13:00-0500 Body temperature 98.5 [degF] Rip Mast Other [facility] Other 09-12-2022 13:00-0500 Body weight 65.95 kg Rip Mast Other [facility] Other 09-12-2022 13:00-0500 Diastolic blood pressure 78 mm[Hg] Rip Mast Other [facility] Other 09-12-2022 13:00-0500 Respiratory rate 16 /min Rip Mast Other [facility] Other 09-12-2022 13:00-0500 SaO2% (BldA) [Mass fraction] 96 % Rip Mast Other [facility] Other 09-12-2022 13:00-0500 Systolic blood pressure 112 mm[Hg] Rip Mast Other [facility] Other 06-28-2021 16:45-0500 Body height 162.56 cm Yves Miramontes Other [facility] Other 06-28-2021 16:45-0500 Body mass index (BMI) [Ratio] 24.89 kg/m2 Yves Miramontes Other [facility] Other 06-28-2021 16:45-0500 Body weight 65.77 kg Yves Miramontes Other [facility] Other Encounters Encounter Date Encounter Type Care Provider Facility Start: 08-26-2024 End: 08-26-2024 ambulatory [facility] Work Phone: Start: 08-26-2024 End: 08-26-[address] [facility] Work Phone: Start: 07-30-2024 End: 07-30-2024 ambulatory [facility] Start: 07-30-2024 End: 07-30-2024 Encounter for antibody response examination [facility] Start: 08-09-2023 End: 08-09-2023 ambulatory Rip Mast Other [facility] Other Start: 08-09-2023 Telephone encounter Rip Mast [facility] Start: 11-06-2022 End: 11-06-2022 ambulatory Rip Mast Facility:[facility] Start: 11-06-2022 End: 11-06-2022 Patient encounter procedure DO Rip Mast Work Phone: [facility] Start: 09-12-2022 End: 09-12-2022 ambulatory Rip Mast Other [facility] Other Start: 09-12-2022 Encounter for genera l adult medical examination without abnormal findings Rip Mast [facility] Start: 09-12-2022 Periodic preventive med est patient 40-64yrs Rip Mast [facility] Start: 07-09-2022 End: 07-09-2022 ambulatory Rip Mast Other [facility] Other Start: 07-09-2022 Telephone encounter Rip Mast [facility] Start: 06-19-2022 End: 06-20-2022 ambulatory JOANNE SORIA Facility: Start: 09-26-2021 End: 09-26-2021 ambulatory Rip Mast Other [facility] Other Start: 09-26-2021 Telephone encounter Rip Mast [facility] Start: 08-05-2021 End: 08-05-2021 ambulatory Yves Miramontes Other [facility] Other Start: 08-05-2021 Telephone encounter Yves Miramontes [facility] Start: 06-28-2021 End: 06-28-2021 ambulatory Yves Miramontes Other [facility] Other Start: 06-28-2021 Office outpatient ne w 45 minutes Yves Miramontes [facility] Immunizations Immunization Date Immunization Notes Care Provider [place] 05-21-2022 influenza, seasonal, injectable Rip Mast Other [facility] 05-21-2022 COVID-19 Moderna (BIvalent) Rip Mast Other [facility] 06-18-2021 COVID-19 [id number] (Moderna) [facility] 05-09-2021 influenza, seasonal, injectable Rip Mast Other [facility] 12-27-2020 zoster vaccine recombinant Yves Miramontes Other [facility] 08-03-2020 COVID-19 mRNA-1273 (Moderna) [facility] 07-07-2020 COVID-19 Vaccine Mod marylou - Documentation Purposes Only Rip Mohr Other [facility] 07-06-2020 COVID-19 mRNA-1273 (Moderna) [facility] 04-08-2020 influenza, seasonal, injectable Yves Miramontes Other [facility] Payers Date Payer Category Payer Self-pay [id number] 1965 Unknown [id number] 1960 Unknown [id number]. [id number] Unknown MMO [id number] Unknown [id number] Social History Date Type Detail Facility Unknown if ever smoked [facility] Other Sex Assigned At Sex Assigned At Bir th [facility] Other Start: 1965 Sex Assigned At Female F [facility] Start: 08-29-2021 End: 08-26-2024 Tobacco smoking status NHIS Never smoked tobacco (finding) [facility] Start: 08-26-2024 Sex Female (finding) [facility] Evaluation note 09-12-2022 Note Date & [...] Z13.6) Sep, Exertional dyspnea (ICD-10 - R06.09) [facility] Other Evaluation note 09-26-2021 Note Date & Type Note Facility 09-26-2021 Evaluation note Encounter Date Diagnosis Assessment Notes Sep, Screening for cardiovascular condition (ICD-10 - Z13.6) [facility] Other Evaluation note 08-05-2021 Note Date & Type Note Facility 08-05-2021 Evaluation note Encounter Date Diagnosis Assessment Notes Jul, GERD (gastroesoph ageal reflux disease) (ICD-10 - K21.9) Jul, Celiac disease (ICD-10 - K90.0) Jul, Family history of colon cancer (ICD-10 - Z80.0) [facility] Other Evaluation note Note Date & Type Note Facility Evaluation note [facility] Other Evaluation note Note Date & Type Note Facility Evaluation note No assessment information [facility] Work Phone: Evaluation note Note Date & Type Note Facility Evaluation note No Information [facility] Other History general Narrative - Reported Note Date & Type Note Facility History general Narrative - Reported [facility] Other History general Narrative - Reported Note [...] LUIS FERNANDO KAYE Hospitalization History CHEST PAIN [facility] Other History general Narrative - Reported Note [...] History Colonoscopy 2021 Hospitalization History CHEST PAIN [facility] Other Summary Purpose Family History Relationship Condition [...] section and content) DATE CREATED AUTHOR [facility]/29/[facility] DATE CREATED AUTHOR AUTHOR'S ORGANIZ ATION 06/30/2022 [facility] DATE CREATED AUTHOR AUTHOR'S ORGANIZ ATION 11/07/2022 [facility] DATE CREATED AUTHOR AUTHOR'S ORGANIZ ATION 08/01/2024 [facility] REASON FOR VISIT (unrecogniz ed section and [...] BE BASED ON THE PRIMARY CLINICAL RECORDS. [facility] [employer] [facility]. provides no warranty or guarantee of the accuracy or completeness of information in this document.
[2024-10-17 08:25] LABS: Basophils Absolute Auto 0.1 10^3/uL (0.0-0.1); Basophils Percent Auto 1.6 % (0.2-2.0); Eosinophils Absolute Auto 0.3 10^3/uL (0.0-0.7); Hematocrit 41.7 % (36.0-48.0); Lymphocytes Absolute Auto 1.7 10^3/uL (1.2-3.8); Lymphocytes Percent Auto 37.9 % (20.5-60.0); Mean Corpuscular HGB Conc 33.6 g/dL (29.9-35.2); Mean Corpuscular Hemoglobin 31.7 pg (26.7-34.0); Mean Corpuscular Volume 94.6 fL (81.0-99.0); Mean Platelet Volume 9.5 fL (9.5-13.5); Monocytes Absolute Auto 0.4 10^3/uL (0.3-0.8); Monocytes Percent Auto 9.7 % (1.7-12.0); Neutrophils Absolute Auto 1.9 10^3/uL (1.4-6.5); Neutrophils Percent Auto 43.8 % (43.0-75.0); Platelet Count 316 10^3/uL (150-450); Red Blood Count 4.41 10^6/uL (4.20-5.40); Red Cell Distribution Width 12.6 % (11.0-15.0); White Blood Count 4.4 10^3/uL (4.0-11.0)
[2024-10-17 09:03] LABS: Alanine Aminotransferase 22 U/L (14-59); Albumin Globulin Ratio 1.2; Albumin Level 3.7 g/dL (3.4-5.0); Alkaline Phosphatase 63 U/L (46-116); Aspartate Amino Transferase 21 U/L (15-37); BUN Creatinine Ratio 19.8; Bilirubin Total 0.4 mg/dL (0.2-1.0); Calcium 8.8 mg/dL (8.5-10.1); Carbon Dioxide 26.9 mmol/L (21.0-32.0); Chloride 106 mmol/L (98-107); Chol HDL Ratio 3.8; Cholesterol 224 mg/dL (<=200); Estimated GFR (African America >60 (>=60 mL/min/1.73m^2); Estimated GFR (Non-African Ame >60 (>=60 mL/min/1.73m^2); Globulin 3.2 g/dL; Glucose 93 mg/dL (74-106); HDL Cholesterol 59 mg/dL (40-60); Potassium 3.9 mmol/L (3.5-5.1); Sodium 140 mmol/L (136-145); Total Protein 6.9 g/dL (6.4-8.2); Triglycerides 152 mg/dL (<=150); VLDL CHOLESTEROL 30.4 mg/dL
== END 2024-10-17 08:05 | disposition home or self-care (01) ==
LOC: LAB 08:08
PROVIDERS: Visit Provider Family Medicine
DX: Z00.00 Encounter for general adult medical examination without abnormal findings (principal)
CPT/HCPCS: 36415; 80053; 80061; 85025